=== PATIENT | female | born 1955 | race Caucasian/White ===

== ENCOUNTER → 2019-07-21 14:49 | Outpatient (CLI) | payer OTHER, SELFPAY ==
--- NOTE | 2019-07-21 14:52 | CT_ITS ---
STUDY: CT PARANASAL SINUSES WITHOUT CONTRAST REASON FOR EXAM: Female, 63 years old. SINUSITIS RADIATION DOSAGE (If Supplied By Facility): CTDIvol = ( 33.06 ) mGy, DLP = ( 788.40 ) mGycm TECHNIQUE: The patient was scanned in a multi-detector CT scanner. High resolution transaxial imaging was performed following the intravenous administration of . Sagittal and coronal images were reconstructed. Individualized dose optimization techniques were used for this CT. COMPARISON: None. FINDINGS: FRONTAL SINUSES: Normal development and aeration of the bilateral frontal sinuses without mucosal inflammatory disease. ETHMOIDAL SINUSES: Normal development and aeration of the bilateral ethmoidal air cells without mucosal inflammatory disease. MAXILLARY SINUSES: Normal development and aeration of the bilateral maxillary antra without mucosal inflammatory disease. SPHENOIDAL SINUSES: There is mild sphenoid opacification with air pockets, suggestive of acute sinusitis. OMU: Normal aeration of the bilateral maxillary infundibulum. Normal uncinate process, ethmoid bulla, and hiatus semilunaris. MIDDLE TURBINATES: There is bilateral judy bullosa of the middle turbinates. INFERIOR TURBINATES: Normal bilateral inferior turbinates. NASAL SEPTUM: Normal midline nasal septum and there is no nasal septal mass lesions, deviation or spur. CT/Sinus/Facial Bone IMPRESSION: Mild acute sphenoid sinusitis. Electronically Signed: Negar Mireles MD at 12:10 EST Tel , Service support ,
== END ==
PROVIDERS: Family Provider Internal Medicine; PCP Internal Medicine; Referring Provider Otolaryngology Otolaryngology/Facial Plastic Surgery; Visit Provider Otolaryngology Otolaryngology/Facial Plastic Surgery
DX: J32.9 Chronic sinusitis, unspecified (principal)
CPT/HCPCS: 70486

== ENCOUNTER → 2020-05-17 14:26 | Outpatient (CLI) | payer OTHER, SELFPAY ==
--- NOTE | 2020-05-17 14:33 | BD_ITS ---
STUDY: DUAL ENERGY X-RAY ABSORPTIOMETRY / DXA REASON FOR EXAM: Female, 64 years old. DRESSMAKER OR TAILOR-SURGICAL EARLY AT 43 -- HX OF HRT -- TAKES HCTZ -- TAKES MULTIVITAMIN -- DOES HIGH AMOUNT OF EXERCISE -- HX OF RIGHT ANKLE FX -- HX OF C6-7 FUSION -- RAUL OF 1 INCH TECHNIQUE: Bone Mineral Density (BMD) measurements of lumbar spine and bilateral hips were obtained. COMPARISON: None. FINDINGS: Lumbar Spine (L1-L4): g/cm2 (1.045) / T-score (-1.3) / Z-score (0.2) Findings are suggestive of osteopenia with a low fracture risk. Left Femur Total: g/cm2 (0.769) / T-score (-1.9) / Z-score (-0.8) Left Femoral Neck: g/cm2 (0.758) / T-score (-2.0) / Z-score (-0.6) Right Femur Total: g/cm2 (0.763) / T-score (-1.9) / Z-score (-0.8) Right Femoral Neck: g/cm2 (0.791) / T-score (-1.8) / Z-score (-0.4) BD/Dexa Bone Density Study IMPRESSION: The patient is considered osteopenic as outlined below according to World Cliff Organization (WHO) criteria with a moderate fracture risk. Reference Information: The T-score is the number of standard deviations above or below the standard which is normal for young adults at their peak bone mineral density. The World Health Organization (WHO) interprets the T-scores as follows: Above -1 Normal bone density Between -1 and -2.5 Osteopenia Equal to / or below -2.5 Osteoporosis As a practical clinical guideline, osteopenia may be graded as follows: Mild -1 through -1.5 Moderate -1.6 through -2.0 Severe -2.1 through -2.4 The Z-score is the number of standard deviations above or below age-matched controls. A Z-score of less than -1.5 would be considered abnormal. References: 1. NIH Osteoporosis and Related Bone Diseases www osteo.org 2. International Society for Clinical Densitometry www iscd.org 3. National Osteoporosis Foundation www nof.org Electronically Signed: Shady Reyes, at 15:26 EST , Service support ,
== END ==
PROVIDERS: PCP Internal Medicine; Referring Provider Internal Medicine; Visit Provider Internal Medicine
DX: Z78.0 Asymptomatic menopausal state (principal)
CPT/HCPCS: 77080

== ENCOUNTER → 2021-01-09 15:52 | Outpatient (CLI) | payer OTHER, SELFPAY ==
--- NOTE | 2021-01-09 15:54 | BI_ITS ---
MAMMOGRAPHY - BILATERAL SCREENING REASON FOR EXAM: Female, 65 years old. Routine annual screening examination. PERTINENT HISTORY: Sister with breast cancer. Father with breast cancer. TECHNIQUE: Digital bilateral breast catrachito (3D mammographic acquisition) in the CC and MLO projections. 2-D mediolateral oblique (MLO) and craniocaudad (CC) views of both breasts were obtained. CAD: Full Field Digital Mammography with Computer Added Detection was performed. COMPARISON: Comparison is made with prior outside examination dated 01/27/2020. FINDINGS: Breast Composition: The breasts are extremely dense, which lowers the sensitivity of mammography. There are no dominant masses or suspicious calcifications. No other significant abnormalities are identified. There has been no significant change since the prior study. BI/SCRN MAMM (CAD)W/CATRACHITO BILAT IMPRESSION: Stable bilateral screening mammogram. Yearly follow-up mammogram recommended. (A) ASSESSMENT CATEGORY: BIRADS Category 1: Negative. A letter regarding these results will be sent to the patient by the facility within 30 days. Approximately 10% of breast cancers are not detected by mammography. A normal mammogram should not delay biopsy of a clinically suspicious abnormality. [id number] Electronically Signed: Shady Reyes MD at 10:29 EDT , Service support ,
== END ==
PROVIDERS: PCP Internal Medicine; Referring Provider Internal Medicine; Visit Provider Internal Medicine
DX: Z12.31 Encounter for screening mammogram for malignant neoplasm of breast (principal)
CPT/HCPCS: 77063; 77067

== ENCOUNTER 2021-09-03 13:57 | Outpatient (CLI) | payer OTHER, SELFPAY ==
[2021-09-03 14:46] LABS: D-Dimer Quantitative (DVT/PE) 1.45 FEU/ug/m (0.27-0.49)
== END 2021-09-03 23:59 | disposition home or self-care (01) ==
LOC: LABSPEC 14:19
PROVIDERS: PCP Internal Medicine; Referring Provider Internal Medicine; Visit Provider Internal Medicine
DX: R07.81 Pleurodynia (principal)
CPT/HCPCS: 85379

== ENCOUNTER 2021-09-03 17:05 | Emergency (ER) | payer OTHER, SELFPAY ==
[2021-09-03 17:06] VITALS: BP 188/110; PULSE 86; RESP 15; TEMP 36.5; O2SAT 100; BMI 24.3
--- NOTE | 2021-09-03 19:11 | EDS_ITS ---
HPI History of Present Illness Chief Complaint: Abn Labs Detail of Chief Complaint: Elevated D-dimer Informant: patient Onset/Context/Timing Onset: Days Context: Sudden Onset Timing: Intermittent Quality: Pain Location: Right and left side of the torso Current Severity: Mild Maximum Severity: Moderate Worsened by: Movement and lying on her right or left side Relieved by: Supine position Associated Symptoms Associated Symptoms: Pain with movement and breathing Narrative Narrative: Patient is a 65-year-old woman with no significant past medical hi story other than MGUS who was seen by her primary care physician and had x-rays of her spine and a D-dimer taint. Reason she had a D-dimer was because she was positive for Covid. She has no respiratory symptoms. Her pain did not start until after she had the fall and doing CrossFit exercises. She denies history of VTE. She is on no hormonal therapy. She has no history of surgery, immobilization. She denies leg pain, swelling or discoloration. Prior similar symptoms: No Recent Illness/Hospitalization: No PFSH PFSH Medical History (Updated 09/03/21 @ 19:[address] Olman Valentin MD) Fusion of spine, cervical region Medical History no medical history Home Medications dexlansoprazole [Dexilant] 60 mg PO DAILY 09/03/21 [History Last Taken Unknown] lisinopril-hydrochlorothiazide 1 tab PO DAILY 09/03/21 [History Last Taken Unknown] progesterone micronized 100 mg PO DAILY 09/03/21 [History Last Taken Unknown] Allergy/AdvReac Type Severity Reaction Status Date / Time codeine Allergy Other Verified 09/03/21 17:09 Iodinated Contrast Media Allergy Hives Verified 09/03/21 17:09 [CONTRASTS] procaine [From Novocain] Allergy Other Verified 09/03/21 17:09 Sulfa (Sulfonamide Allergy Other Verified 09/03/21 17:09 Antibiotics) Family History no significant family his Surgical History no surgical history Social History (Updated 09/03/21 @ 19:[address] Olman Valentin MD) household members: spouse Smoking Status: Never smoker substance use type: does not use ROS ROS ED Constitutional Constitutional ED: Denies chills, fever(s), subjective or sweats ENT ENT ED: Denies ear pain, rhinorrhea or sore throat Cardiovascular Cardiovascular: Denies chest pain, palpitations or racing heartbeat Respiratory/Chest Respiratory/Chest: Denies cough, dyspnea or dyspnea on exertion Gastrointestinal Gastrointestinal: Denies diarrhea, nausea or vomiting Musculoskeletal Musculoskeletal: Reports back pain and other Details: Bilateral tarsal discomfort as previously described ; Denies arthralgias, myalgias or neck pain Neurologic Neurologic: Denies headache(s), paresthesias or weakness EXAM Physical Exam Const Vital Signs: 09/03/21 17:06 09/03/21 18:47 Temperature 97.7 F L Temperature Source Temporal Pulse Rate 86 Respiratory Rate 15 Respiratory Effort Normal Respiratory Pattern Normal Blood Pressure 188/110 H Blood Pressure Mean 136 Pulse Ox 100 Oxygen Delivery Method Room Air Positive well nourished and well developed General Appearance ED: well developed and NAD; Negative for cyanotic or diaphoretic HEENT Reports moist mucous membranes Negative for trauma or tenderness Eyes PERRL and EOMs intact bilaterally General Eye ED: Negative for pale conjunctiva or scleral icterus Neck no lymphadenopathy, supple and no JVD Chest Wall inspection of chest normal and palpation of chest normal Resp normal respiratory effort and clear to auscultation bilaterally Effort and Inspection: pain with movement Cardio regular rate, regular rhythm, S1 normal heart sound, S2 normal heart sound and no murmurs GI normal to inspection, nondistended, normoactive bowel sounds and non-tender Palpation: soft Back/Spine no CVA tenderness Cervical Spine: Negative for cervical spine tenderness Thoracic Spine / Upper Back: paraspinal muscle tenderness; Negative for thoracic spinal tenderness Lumbar Spine / Lower Back: Negative for lumbar spinal tenderness Extremity normal to inspection Extremity Narrative: There is no asymmetry, swelling, discoloration, leg vein distention, palpable cords or tenderness along the distribution of the deep venous system. General Extremety ED: Negative for edema or tenderness General Extremity: Negative for edema Neuro oriented x3 and CN's II-XII intact bilaterally Sensorium / Orientation: alert Psych mental status grossly normal Skin no rashes or lesions noted and no wounds MDM MDM MDM Narrative Medical decision making narrative: Patient has a very possible explanation for her pain that is musculoskeletal. In my opinion a D-dimer may be up because of age, the fact that she has MGUS etc. She is not tachypneic, tachycardic or hypoxic. Her pain did not start until after she did the CrossFit exercises. Her blood pressure has been slightly elevated recently. Her most recent blood pressures have all been within normal range. Attribute this to the fact the patient is anxious that she was sent him to rule out pulmonary embolus and that she has discomfort because of muscular pain. Discharge Plan Triage Chief Complaint: Abn Labs ED Provider: Olman Valentin Dx/Rx/DC Orders Clinical Impression: Musculoskeletal back pain Instructions: ED Back and Neck Pain, General Prescriptions: No Action lisinopril-hydrochlorothiazide 10-12.5 mg tablet 1 tab PO DAILY RF: 0 progesterone micronized 100 mg capsule 100 mg PO DAILY RF: 0 Dexilant 60 mg capsule,biphase delayed releas 60 mg PO DAILY RF: 0 Primary Care Provider: Lauren Hwang Referrals: Lauren Hwang, [Primary Care Provider] - Activity Restrictions/Additional Instructions: Apply ice 6-8 times a day for the next 3 to 5 days. You may take Tylenol or ibuprofen for your discomfort. Disposition Disposition: Home, Self Care
[2021-09-03 19:26] VITALS: BP 181/101
== END 2021-09-03 19:27 | disposition home or self-care (01) ==
PROVIDERS: Emergency Provider Emergency Medicine; PCP Internal Medicine; Visit Provider Emergency Medicine
DX: M54.9 Dorsalgia, unspecified (principal); Z79.899 Other long term (current) drug therapy
CPT/HCPCS: 99282

== ENCOUNTER 2021-09-05 17:49 | Outpatient (CLI) | payer OTHER, SELFPAY ==
--- NOTE | 2021-09-05 17:52 | CT_ITS ---
STUDY: CTA CHEST REASON FOR EXAM: Female, 65 years old. ELEVATED D-DIMER. Right-sided chest pain with deep breathing. RADIATION DOSAGE (If Supplied By Facility): CTDIvol = ( 7.29 ) mGy, DLP = ( 282.10 ) mGycm TECHNIQUE: The examination was performed with the intravenous administration of IV 100mL Isovue-370. Post-processing of the angiographic images was performed, with multiplanar reformation and 3D reconstruction. Individualized dose optimization techniques were used for this CT. COMPARISON: None. FINDINGS: There is a pectus excavatum deformity. Small benign-appearing bilateral axillary lymph nodes. Normal enhancement of the main pulmonary artery and right and left pulmonary arteries. Normal enhancement of the bilateral peripheral pulmonary arteries. There is no demonstrated pulmonary embolism. Normal thoracic aorta and visualized great vessels. There is no demonstrated aortic dissection. Normal heart and pericardium. Normal mediastinum. Normal hilar regions. Normal visualized trachea and bronchi. The lungs are well expanded. Findings suggestive of scarring at both lung apices. Mild degree of emphysematous changes. Normal pleura. Normal chest wall structures. There are degenerative changes of thoracic spine. Normal visualized upper abdomen. CT/CTA Chest W/WO Contrast IMPRESSION: No evidence of pulmonary embolism. Mild emphysematous changes. Findings suggestive of scarring at both lung apices. Electronically Signed: Shady Reyes MD at 8:38 EST ,
[2021-09-05 18:06] LABS: CREATININE FINGERSTICK 0.7 mg/dL (0.55-1.02); EGFR FINGERSTICK > 60.0000 mL/min (>60)
== END 2021-09-05 23:59 | disposition home or self-care (01) ==
LOC: CT 17:50
PROVIDERS: PCP Internal Medicine; Visit Provider Internal Medicine
DX: R79.89 Other specified abnormal findings of blood chemistry (principal); M54.6 Pain in thoracic spine
CPT/HCPCS: 71275; Q9967

== ENCOUNTER 2021-09-13 15:00 | Outpatient (RCR) | payer OTHER, SELFPAY ==
--- NOTE | 2021-05-28 13:31 | HP.PTEVAL_ITS ---
Patient's Visit Information MELLY LOVE is a 65 year old F referred to Physical Therapy by Dr. Melly Hwang DO with a diagnosis of Thoracic spine pain. Date of Evaluation: 05/27/21 Physical Therapist: Eddy Howell DPT - Visit Plan Frequency: 1x/Week Duration: 4 Weeks Plan: Improve thoracic mobility through thoracic PA mobs. Strengthen erector spinae musculature as well as examine proper lifting techniques with lat pull downs, benching, and pec fly's. Incorporate core strengthening. - Subjective Patient presents to Physical therapy with thoracic pain that has been occurring for 3 years now, it used to be less frequent, but now occurs 3-5 times per month. Pt states that often after hard work outs she will wake up at night experiencing severe pain radiating from her spine to her right rib and up to her neck. The pt reports moving around alleviates these symptoms. Pt reports heat can help sometimes. Pt notes experiencing cramping when performing bench press, pull ups and pec flies, but she does not experience the radiating pain at this time. Pt states goals are to get rid of this pain and be able to sleep better. She states she works out 3x/ week and lifts fairly heavy. Pt denies numbness and tingling. She states she has gone to a chiropractor where they did deep soft tissue massage which relieved the pain temporarily. Patient also notes a history of anterior cervical cervical fusion at level C5-6. - Pain Back Pain Intensity (Out of 10): Unrated Pain Intensity Range: Unrated - Objective ROM: limited cervical extension, cervical neck cleared; thoracic : within normal limits , overpressure with right rotation caused symptoms ,. Limited thoracic PA mobility, stiffness with rotation. Palpation: tenderness to R erector spinae thoracic region. Observation: seated with slight forward shoulders - Balance/Special Test Scores Oswestry Low Back Score: 0 - Goals Goal 1:: Pt will be independent with HEP Goal Time Frame: 2-4 Weeks Goal 2:: Pt will perform pec flies and benching with 0/10 pain and no muscle cramping. Goal Time Frame: 2-4 Weeks Goal 3:: Pt will be able to sleep each night without waking up in pain for > 2 weeks Goal Time Frame: 2-4 Weeks Goal 4:: Pt will be able to improve spinal mobility to allow improved movement and function with recreational activities. Goal Time Frame: 2-4 Weeks Goal 5:: Pt. able to complete all work out movements including bench press, etc without increase in symptoms. - Rehabilitation Potential Physical Therapy Diagnosis: Pt. has signs and symptoms consistent with thoracic spine pain. She has signs of muscle invovlement rather than discogenic. Will work on postural control and adjustment of lifting techniques. Rehabilitation Potential: Good - Anticipated Interventions Patient/Client Instruction: Educate patient on: Condition, Plan of Care, Benefits of Fitness Program For the Purpose of:: To decrease pain, To increase ROM, To improve ability of physical actions for home/community/work/leisure Therapeutic Exercise to Include: Strength training, Postural training, Flexibilty training, Active ROM, Scapular Strength/Stabilization For the Purpose of:: To decrease pain, To increase ROM, To improve ability of physical actions for home/community/work/leisure Manual Therapy Techniques to Include: Trigger point massage, Massage, Mobilization, Soft tissue mobilization For the Purpose of:: To decrease pain, To increase ROM, To improve nutrient de livery to tissue, To improve ability of physical actions for home/community/work/leisure, To increase flexibility/ROM Thermo therapy (hot pack): Yes For the Purpose of:: To decrease pain, To increase ROM Thank you for the opportunity to evaluate your patient. For Medicare and Medicare HMO plans, please review the plan of care and approve it. It will need to be FAXED BACK to us at [phone] for Medicare purposes. For Medicare only, by signing this I certify the plan of care. Please let me know if there are questions or concerns regarding this plan of care. Physician Signature: Date:
== END 2021-09-13 19:00 | disposition home or self-care (01) ==
LOC: PT 15:00
PROVIDERS: PCP Internal Medicine; Referring Provider Internal Medicine; Visit Provider Internal Medicine
DX: M54.6 Pain in thoracic spine (principal)
CPT/HCPCS: 97110; 97161; 97530

== ENCOUNTER → 2022-01-14 | Outpatient (CLI) | payer OTHER, SELFPAY ==
--- NOTE | 2022-01-14 10:16 | BI_ITS ---
MAMMOGRAPHY - BILATERAL SCREENING REASON FOR EXAM: Female, 66 years old. Routine annual screening examination. PERTINENT HISTORY: Sister with breast cancer. Father with breast cancer. TECHNIQUE: Digital bilateral breast catrachito (3D mammographic acquisition) in the CC and MLO projections. 2-D mediolateral oblique (MLO) and craniocaudad (CC) views of both breasts were obtained. CAD: Full Field Digital Mammography with Computer Added Detection was performed. COMPARISON: Comparison is made with prior study dated 01/09/2021. FINDINGS: Breast Composition: The breasts are heterogeneously dense, which may obscure small masses. There are no dominant masses or suspicious calcifications. No other significant abnormalities are identified. There has been no significant change since the prior study. BI/SCRN MAMM (CAD)W/CATRACHITO BILAT IMPRESSION: Stable bilateral screening mammogram. Yearly follow-up mammogram recommended. (A) ASSESSMENT CATEGORY: BIRADS Category 1: Negative. A letter regarding these results will be sent to the patient by the facility within 30 days. Approximately 10% of breast cancers are not detected by mammography. A normal mammogram should not delay biopsy of a clinically suspicious abnormality. [id number] Electronically Signed: Shady Reyes MD at 10:48 EDT ,
== END | disposition home or self-care (01) ==
LOC: OPBI 10:14
PROVIDERS: PCP Internal Medicine; Visit Provider Internal Medicine
DX: Z12.31 Encounter for screening mammogram for malignant neoplasm of breast (principal)
CPT/HCPCS: 77063; 77067

== ENCOUNTER → 2022-07-22 | Outpatient (CLI) | payer OTHER, SELFPAY ==
--- NOTE | 2022-07-22 14:58 | BD_ITS ---
STUDY: DUAL ENERGY X-RAY ABSORPTIOMETRY / DXA REASON FOR EXAM: Female, 66 years old. [id number] TECHNIQUE: Bone Mineral Density (BMD) measurements of lumbar spine and bilateral hips were obtained. COMPARISON: Comparison is made with prior study dated 05/17/2020. FINDINGS: Lumbar Spine (L1-L4): g/cm2 (0.919) / T-score (-1.2) / Z-score (0.6) Findings are suggestive of osteopenia with a low fracture risk. Left Femur Total: g/cm2 (0.795) / T-score (-1.2) / Z-score (0.1) Left Femoral Neck: g/cm2 (0.688) / T-score (-1.4) / Z-score (0.1) Right Femur Total: g/cm2 (0.749) / T-score (-1.6) / Z-score (-0.3) Right Femoral Neck: g/cm2 (0.684) / T-score (-1.5) / Z-score (0.1) The T-Scores on the most recent prior examination were: Lumbar Spine (L1-L4): There has been improvement of bone density since the previous examination. Left Femur Total: which represents an improvement of 11.9%. Right Femur Total: which represents an improvement of 6.4%. BD/Dexa Bone Density Study IMPRESSION: The patient is considered osteopenic as outlined below according to World Cliff Organization (WHO) criteria with a moderate fracture risk. There has been improvement of bone density since the previous examination. Reference Information: The T-score is the number of standard deviations above or below the standard which is normal for young adults at their peak bone mineral density. The World Health Organization (WHO) interprets the T-scores as follows: Above -1 Normal bone density Between -1 and -2.5 Osteopenia Equal to / or below -2.5 Osteoporosis As a practical clinical guideline, osteopenia may be graded as follows: Mild -1 through -1.5 Moderate -1.6 through -2.0 Severe -2.1 through -2.4 The Z-score is the number of standard deviations above or below age-matched controls. A Z-score of less than -1.5 would be considered abnormal. References: 1. NIH Osteoporosis and Related Bone Diseases www osteo.org 2. International Society for Clinical Densitometry www iscd.org 3. National Osteoporosis Foundation www nof.org Electronically Signed: Shady Reyes MD at 8:34 EST ,
== END | disposition home or self-care (01) ==
LOC: OPBD 14:49
PROVIDERS: PCP Internal Medicine; Referring Provider Internal Medicine; Visit Provider Internal Medicine
DX: Z78.0 Asymptomatic menopausal state (principal)
CPT/HCPCS: 77080

== ENCOUNTER → 2022-12-29 | Outpatient (CLI) | payer OTHER, SELFPAY ==
--- NOTE | 2022-12-29 16:59 | RAD_ITS ---
EXAM: XR LUMBOSACRAL SPINE, 4 OR 5 VIEWS CLINICAL INDICATION: LUMBAR RADICULOPATHY TECHNIQUE: Frontal, lateral and bilateral oblique views of the lumbar spine. COMPARISON: No relevant prior studies available. FINDINGS: VERTEBRAE: Unremarkable. Preserved vertebral body height. No fracture. No spondylolisthesis. Preservation of the normal lumbar lordosis. No significant facet arthropathy. DISC SPACES: There is disc space narrowing at L5-S1. GASTROINTESTINAL TRACT: Unremarkable as visualized. Included bowel gas pattern is non-obstructive. RAD/L/S Spine Min 4 Views IMPRESSION: No acute osseous abnormalities. There are degenerative changes with disc space narrowing at L5-S1. Electronically Signed: Magno Stuart MD at 22:41 EDT ,
== END | disposition home or self-care (01) ==
LOC: MTRAD 16:57
PROVIDERS: PCP Internal Medicine; Referring Provider Internal Medicine; Visit Provider Internal Medicine
DX: M54.16 Radiculopathy, lumbar region (principal)
CPT/HCPCS: 72110

== ENCOUNTER → 2023-01-07 | Outpatient (CLI) | payer OTHER, SELFPAY | END | disposition home or self-care (01) | LOC: PSN 12:30 | PROVIDERS: PCP Internal Medicine; Referring Provider Internal Medicine; Visit Provider Internal Medicine | DX: I47.1 Supraventricular tachycardia (principal) | CPT/HCPCS: 93225; 93226 ==

== ENCOUNTER → 2023-01-15 | Outpatient (CLI) | payer OTHER, SELFPAY ==
--- NOTE | 2023-01-15 08:12 | BI_ITS ---
MAMMOGRAPHY - BILATERAL SCREENING REASON FOR EXAM: Female, 67 years old. Routine annual screening examination. PERTINENT HISTORY: Sister with breast cancer. Father with breast cancer. TECHNIQUE: Digital bilateral breast catrachito (3D mammographic acquisition) in the CC and MLO projections. 2-D mediolateral oblique (MLO) and craniocaudad (CC) views of both breasts were obtained. CAD: Full Field Digital Mammography with Computer Added Detection was performed. COMPARISON: Comparison is made with prior study dated January 14, 2022 and January 09, 2021. FINDINGS: Breast Composition: The breasts are extremely dense, which lowers the sensitivity of mammography. There are no dominant masses or suspicious calcifications. No other significant abnormalities are identified. There has been no significant change since the prior study. BI/SCRN MAMM (CAD)W/CATRACHITO BILAT IMPRESSION: Stable bilateral screening mammogram. Yearly follow-up mammogram recommended. (A) ASSESSMENT CATEGORY: BIRADS Category 1: Negative. A letter regarding these results will be sent to the patient by the facility within 30 days. Approximately 10% of breast cancers are not detected by mammography. A normal mammogram should not delay biopsy of a clinically suspicious abnormality. [id number] Electronically Signed: Shady Reyes MD at 9:14 EDT ,
== END | disposition home or self-care (01) ==
LOC: OPBI 08:10
PROVIDERS: PCP Internal Medicine; Referring Provider Internal Medicine; Visit Provider Internal Medicine
DX: Z12.31 Encounter for screening mammogram for malignant neoplasm of breast (principal)
CPT/HCPCS: 77063; 77067

== ENCOUNTER → 2023-09-14 | Outpatient (CLI) | payer OTHER, SELFPAY ==
[2023-09-14 17:37] LABS: Absolute Lymphocyte Count 1.56 X10^3/uL (0.83-4.51); Absolute Neutrophil Count 5.3 X10^3/uL (2.0-7.7); Basophil# 0.07 X10^3/uL; Basophil% 0.9 % (0-1); Eosinophil# 0.15 X10^3/uL; Eosinophils% 1.9 % (0-5); Hemoglobin 12.4 g/dL (12.0-15.0); Lymphocyte # 1.56 X10^3/ul (0.83-4.51); Lymphocyte % 19.9 % (19-41); Mean Corp Hgb Conc 33.5 g/dL (32-36); Mean Corpuscular Hgb 30.1 pg (27.0-32.0); Mean Corpuscular Volume 89.8 fL (81-99); Mean Platelet Vol. 10.4 fl (6.2-12.0); Monocyte# 0.71 X10^3/uL; Monocyte% 9.1 % (0-10); NRBC Flagged by Analyzer 0 % (0-5); Neutrophil # 5.31 X10^3/uL (2.7-7.7); Neutrophil % 67.7 % (47-70); Platelet Count 243 K/mm3 (150-450); RBC Distribution Width CV 14.2 % (11.6-14.6); RBC Distribution Width SD 46.8 fl (35.1-43.9); Red Blood Count 4.12 M/mm3 (4.2-5.4); White Blood Count 7.8 K/mm3 (4.4-11.0)
== END | disposition home or self-care (01) ==
LOC: MTLAB 16:25
PROVIDERS: PCP Internal Medicine; Referring Provider Internal Medicine; Visit Provider Internal Medicine
DX: J18.9 Pneumonia, unspecified organism (principal)
CPT/HCPCS: 36415; 85025

== ENCOUNTER → 2024-01-18 | Outpatient (CLI) | payer OTHER, SELFPAY ==
--- NOTE | 2024-01-18 15:07 | BI_ITS ---
MAMMOGRAPHY - BILATERAL SCREENING REASON FOR EXAM: Female, 68 years old. Routine annual screening examination. PERTINENT HISTORY: Sister with breast cancer. Father with breast cancer. TECHNIQUE: Digital bilateral breast catrachito (3D mammographic acquisition) in the CC and MLO projections. 2-D mediolateral oblique (MLO) and craniocaudad (CC) views of both breasts were obtained. CAD: Full Field Digital Mammography with Computer Added Detection was performed. COMPARISON: Comparison is made with prior study dated January 15, 2023 and January 14, 2022. FINDINGS: Breast Composition: The breasts are extremely dense, which lowers the sensitivity of mammography. There are no dominant masses or suspicious calcifications. No other significant abnormalities are identified. There has been no significant change since the prior study. BI/SCRN MAMM (CAD)W/CATRACHITO BILAT IMPRESSION: Stable bilateral screening mammogram. Yearly follow-up mammogram recommended. (A) ASSESSMENT CATEGORY: BIRADS Category 1: Negative. A letter regarding these results will be sent to the patient by the facility within 30 days. Approximately 10% of breast cancers are not detected by mammography. A normal mammogram should not delay biopsy of a clinically suspicious abnormality. [id number] Electronically Signed: Shady Reyes MD at 15:42 EDT ,
== END | disposition home or self-care (01) ==
LOC: OPBI 15:07
PROVIDERS: PCP Internal Medicine; Referring Provider Internal Medicine; Visit Provider Internal Medicine
DX: Z12.31 Encounter for screening mammogram for malignant neoplasm of breast (principal); Z80.3 Family history of malignant neoplasm of breast
CPT/HCPCS: 77063; 77067